=== PATIENT | female | born 1990 | race Caucasian/White ===

== ENCOUNTER 2019-05-07 14:58 | Outpatient (RCR) | payer BC, SELFPAY ==
[2019-05-07 15:04] VITALS: BMI 46.1
[2019-05-07 15:05] VITALS: BMI 46.1
[2019-05-08 07:30] VITALS: BMI 46.1
== END 2019-08-05 23:59 | disposition home or self-care (01) ==
LOC: ANHDMC 14:58
PROVIDERS: PCP Nurse Practitioner Family; Visit Provider Surgery
DX: E11.9 Type 2 diabetes mellitus without complications (principal); Z71.3 Dietary counseling and surveillance
CPT/HCPCS: 97803

== ENCOUNTER 2025-03-14 13:02 | Outpatient (CLI) | payer BC, SELFPAY ==
--- OUTSIDE RECORDS SUMMARY | 2008-06-30 04:45 | XMS_ITS | Continuity of Care Document ---
Author Organization [facility] Address [address] [place] [address] [place] [address] Phone Care Team Providers Care Store Assistant Name Role Phone Elena Jermaine Unavailable Unavailable Procedures Procedure Date Office/outpatient Visit, [facility] Advance Directives Directive Yes / No Effective Date File Name No Information Encounters Encounter Description Practice Location Reason(s) For Visit Diagnoses Date Provider Providers Copied on Encounter Office/outpat ient Visit, [facility], [id number] [place] [address] [address], [place], [place], [id number], [place] tel:[phone] [facility] No Information [phone] Elena Jermaine. [address] [facility] [address], [place], [address], [place]. tel:[phone] Family History Family Member Type Diagnosis Age At Onset No Information Payers Payer name Insurance type Covered constitution party ID Authoriza tion(s) [facility] Commercial CI [id number] Social History Type Description Quantity Date Captured Comments Sex Female Smoking Status No Information Chief Complaint And Reason For Visit No Information Reason For Referral Reason For Referral No Information History Of Present Illness Encounter Date Complaint History Of Prese nt Illness No Information Functional Status Date Functional Assessmen t No Information Instructions Date Instruction Additional Infor mation No Information Assessments Type Assessment Date No Information Patient Care Teams Name Effective Dates (start - stop) Status Members No Information
--- NOTE | ~2025-03-14 | MM_ITS ---
EXAMINATION: MM screening keke BI w danilo HISTORY: Screening TECHNIQUE: Craniocaudal and mediolateral oblique 3-D tomosynthesis images were obtained and synthetic 2-D images were generated. CAD analysis was submitted and interpreted. COMPARISON: Baseline BREAST PARENCHYMAL COMPOSITION: The breasts are heterogeneously dense, which may obscure small masses. FINDINGS: There is no evidence of suspicious mass, calcification, or architectural distortion to suggest malignancy in either breast. IMPRESSION: 1. No mammographic evidence of malignancy. 2. Recommend routine screening mammography in one year. BI-RADS Category 1: Negative Reviewed, dictated and finalized at location B.
--- OUTSIDE RECORDS SUMMARY | 2025-03-14 13:05 | XMS_ITS | Encounter Summary ---
Author Organization [facility] Health Address [address] [place] [address] Care Team Providers Care Exchange Mechanic Name Role Phone Unavailable Primary Care Provider Unavailabl e Prior Encounters Date Type Department Care Team Description 07/15/2019 Converted 13x Documents [facility] [address] [place] [phone] <No scans attached> Plan of Treatment Not on file Procedures Procedure Name Priority Date/Time Associated Diagnosis Comments MISSED APPOINTMENT Routine 05/10/2017 2:00 AM [employer] Visit Diagnoses Not on file
--- OUTSIDE RECORDS SUMMARY | 2025-03-14 13:05 | XMS_ITS | Clinical Summary ---
Author Organization [facility] Address [address] [place] [id number] Care Team Providers Care Freight Adjuster Name Role Phone Provider, Unknown Primary Care Provider Unavaila ble Social History Tobacco Use Types Packs/Day Years Used Date Smoking Tobacco: Never Assessed Comments Unknown Sex and Gender Information Value Date Recorded Sex Assigned at Not on file Legal Sex Female 10:13 AM CDT Gender Identity Not on file Sexual Orientation Not on file Plan of Treatment Health Maintenance Due Date Last Done Comments Hepatitis C Virus (HCV) Screening 1988 Hepatitis B Immunization (1 of 3 - 19+ 3-dose series) 02/08/2007 Pap Smear 02/08/2009 Human Papillomavirus (HPV) Immunization (1 - 3-dose SCDM series) 02/08/2015 Cervical Cancer Screening (CCS) 02/08/2018 HPV/Cotest 02/08/2018 SARS-COV-2 Immunization ( season) 2024 10/03/2020 Influenza Immunization (#1) 2025 05/29/2019 Respiratory Syncytial Virus (RSV) Immunization (Adult) (1 - 1-dose 75+ series) 02/08/2063 DTaP/Tdap/Td Immunization Discontinued 2016, 06/27/2016 TdaP Immunization Completed 07/18/2016, 06/27/2016 Meningococcal Immunization (ACWY) Aged Out No longer eligible based on patient's age to complete this topic Pneumococcal Immunization Combined Aged Out No longer eligible based on patient's age to complete this topic Rotavirus Immunization Aged Out No lo nger eligible based on patient's age to complete this topic Insurance [place] Care Teams Freight Adjuster Relationship Specialty Start Date End Date Provider, Unknown UNKNOWN PCP - General 03/04/16
--- OUTSIDE RECORDS SUMMARY | 2025-03-14 13:05 | XMS_ITS | Clinical Summary ---
Author Organization [facility] Address [address] [place] [address] Care Team Providers Care Construction Assistant Name Role Phone Unavailable Primary Care Provider Unavailabl e Source Comments [facility],non-owned Affiliates and Associated Physician Practices is amultiple site organization consisting of ambulatory clinics and hospital sitesin [place], [place], [place] and [place]. This disclosure is being madepursuant to the Care Everywhere program and may not contain all information available regarding this patient. Last updated 18.[facility] [employer] Allergies No known active allergies Medications * Be aware that medications may not be up to date on this document. Alwaysverify current medications with the patient. 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 Gender Identity Not on file Sexual Orientation Not on file Last Filed Vital Signs Vital Sign Reading Time Taken Comments Blood Pressure 134/90 11/09/2018 5:26 PM CDT Pulse 83 11/09/2018 5:26 PM CDT Temperature 36.9 C (98.5 F) 11/09/2018 5:26 PM CDT Respiratory Rate 15 11/09/2018 5:26 PM CDT Oxygen Saturation 99% 11/09/2018 5:26 PM CDT Inhaled Oxygen Concentration - - Weight 113.4 kg (250 lb) 11/09/2018 5:26 PM CDT Height 165.1 cm (5' 5) 11/09/2018 5:26 PM CDT Body Mass Index 41.6 11/09/2018 5:26 PM CDT Plan of Treatment Health Maintenance Due Date Last Done Comments HIV SCREENING 02/08/2003 HEPATITIS C SCREENING 02/04/2006 DTAP/TDAP/TD VACCINES (1 - Tdap) 02/08/2007 HEPATITIS B VACCINE (1 of 3 - 19+ 3-dose series) 02/08/2007 HPV VACCINE (1 - 3-dose SCDM series) 02/08/2015 DEPRESSION SCREENING 06/26/2024 COVID-19 VACCINE (1 - 2023-2 5 season) 2025 INFLUENZA VACCINE (#1) 2025 ZOSTER VACCINE (1 of 2) 02/08/2038 HIB VACCINE Aged Out No longer eligi ble based on patient's age to complete this topic MENINGOCOCCAL (Group B) VACC INE SHARED DECISION-MAKING Aged Out No longer eligibl e based on patient's age to complete this topic MENINGOCOCCAL GROUPS A/C/Y/W VACCINE Aged Out No longer eligible b ased on patient's age to complete this topic PNEUMOCOCCAL VACCINE Aged Out No long er eligible based on patient's age to complete this topic Insurance [facility] Address: [id number] [place] [address]
--- OUTSIDE RECORDS SUMMARY | 2025-03-14 13:05 | XMS_ITS | Clinical Summary ---
Author Organization [facility] Health Address [address] [place] [address] Care Team Providers Care [employer] [address] Police Officer Name Role Phone Unavailable Primary Care Provider Unavailabl e Social History Tobacco Use Types Packs/Day Years Used Date Smoking Tobacco: Never Assessed Comments Unknown Sex and Gender Information Value Date Recorded Sex Assigned at Not on file Legal Sex Female 1:33 AM PST Gender Identity Not on file Sexual Orientation Not on file Plan of Treatment Not on file
== END 2025-03-14 13:03 | disposition home or self-care (01) ==
LOC: ANHFOHIMG 13:02
PROVIDERS: PCP Nurse Practitioner Family; Visit Provider Student in an Organized Health Care Education/Training Program
DX: Z12.31 Encounter for screening mammogram for malignant neoplasm of breast (principal)
CPT/HCPCS: 77063; 77067